=== PATIENT | female | born 1935 | race Caucasian/White ===

== ENCOUNTER 2017-09-12 12:53 | Emergency (ER) | payer OTHER, MEDICARE ==
[~2017-09-12] VITALS: Ht 170.2 cm; Wt 104.5 kg
[~2017-09-12 12:53] MED LIST: ASPIRIN EC325 MG PO; BACTRIM,SEPT1 TABLET PO; CENTRUM SILVER1 EAC4 PO; COLACE100 MG PO; FERREX 150150 MG PO; FLEXERIL10 MG PO; HYDROCODON-ACE1 EAC7 PO; LOPRESSOR25 MG PO; METOCLOPRAMIDE10 MG PO; PRILOSEC40 MG PO; PROMETHAZINE HC25 M1 PO; PROTONIX40 MG PO; TOVIAZ4 MG PO; ZESTORETIC 10-1 EAC1 PO; ZOFRAN ODT4 MG PO; ZOFRAN4 MG PO
[2017-09-12] MEDS ORDERED: ULTRAM50 MG PO (15:07)
[2017-09-12 15:48] VITALS: BP 128/76
== END 2017-09-12 16:21 | disposition home or self-care (01) ==
LOC: EME 12:53
DX: S43.401A Unspecified sprain of right shoulder joint, initial encounter (principal); X50.1XXA Overexertion from prolonged static or awkward postures, initial encounter; Z88.1 Allergy status to other antibiotic agents
CPT/HCPCS: 73030; 99281; 99284